=== PATIENT | male | born 1990 | race Caucasian/White ===

== ENCOUNTER → 2017-03-20 | Day surgery (SDC) | payer MEDICARE, BC, OTHER | END | disposition home or self-care (01) | LOC: SDC 06:53 | DX: K29.50 Unspecified chronic gastritis without bleeding (principal); K57.30 Diverticulosis of large intestine without perforation or abscess without bleeding; K64.8 Other hemorrhoids; E07.9 Disorder of thyroid, unspecified; Z88.0 Allergy status to penicillin | CPT/HCPCS: J2704 ==